=== PATIENT | female | born 1965 | race Caucasian/White ===

== ENCOUNTER 2019-12-31 12:27 | Inpatient (IN) | payer BC ==
[2019-12-31] MEDS ORDERED: NS 0.9% 1000 ML** 1,000 ML IV ONE (12:35)
[2019-12-31] MEDS ORDERED: Heparin DRIP 25,000 UNITS(*) 25,000 UNITS/500 ML BAG ONE (12:38)
[2019-12-31] MEDS ORDERED: Ticagrelor* 90 MG TAB PO ONE ×2 (12:39→12:40)
[2019-12-31] MEDS ORDERED: Nitroglycerin TAB 0.4 MG* 0.4 MG TAB ONE (12:42)
[2019-12-31] MEDS ORDERED: Aspirin 81 mg CHEW TAB* 81 MG TAB.CHEW ONE (12:43)
[2019-12-31] MEDS ORDERED: Heparin for STEMI(*) 5,000 UNITS/ML 1 ML VIAL IV ONE (12:43)
--- NOTE | 2019-12-31 12:44 | ED ---
HPI Cardiac - HPI Summary HPI Summary: Patient is a 54 y/o F w/ Hx of two MIs and 2-3 cardiac stents who presents to [facility] with complaints of chest pain, bilateral arm pain, nausea and diaphoresis. Patient reports that she had bilateral arm pain onset around 0730 this morning, 12/31/19. Pain resolved, and between 1000 and 1030, she reports onset of nausea and diaphoresis. Patient also reports some chest pain in the room, characterizing it as mild. Patient denies fever, chills, erythema of eyes , sore throat, shortness of breath, cough, abdominal pain, vomiting, dysuria, hematuria, myalgia, edema, rash, or dizziness. She states that first AZ was in 1999 and second in 2011. Patient reports no cardiac stress test since 2011. She claims no Hx of HLD, diabetes. Patient took two regular ASA at around 1000 today. Landscape Crew Leader is Dr. Rodríguez in [facility]. Home medications and allergies are reviewed. - History of Current Complaint Stated Complaint: CHEST PAIN PER PT Hx Obtained From: Patient Onset/Duration: Still Present Timing: Constant Current Severity: Mild Pain Scale Used: 0-10 Numeric Associated Signs and Symptoms: Positive: Chest Pain, Diaphoresis, Nausea, Other : - bilateral arm pain PMH/Surg Hx/FS Hx/Imm Hx Endocrine/Hematology History: Denies: Hx Diabetes Cardiovascular History: Reports: Hx Myocardial Infarction Denies: Hx Hypercholesterolemia - Surgical History Surgery Procedure, Year, and Place: stents - Family History Known Family History: Negative: Seizure Disorder - Social History Substance Use Type: Reports: None Smoking Status (MU): Unknown if Ever Smoked Review of Systems Positive: Skin Diaphoresis. Negative: Fever, Chills Negative: Erythema Negative: Sore Throat Positive: Chest Pain - w/ bilateral arm pain Negative: Shortness Of Breath, Cough Positive: Nausea. Negative: Abdominal Pain, Vomiting Negative: dysuria, hematuria Negative: Myalgia, Edema Negative: Rash Neurological: Negative - Dizziness All Other Systems Reviewed And Are Negative: Yes Physical Exam - Summary Physical Exam Summary: Constitutional: Well-developed, Well-nourished, Alert. (-) Distressed Skin: Warm, Dry HENT: Normocephalic; Atraumatic Eyes: Conjunctiva normal Neck: Musculoskeletal ROM normal neck. (-) JVD, (-) Stridor, (-) Tracheal deviation Cardio: Rhythm regular, rate normal, Heart sounds normal; Intact distal pulses; The pedal pulses are 2+ and symmetric. Radial pulses are 2+ and symmetric. (-) Murmur Pulmonary/Chest wall: Effort normal. (-) Respiratory distress, (-) Wheezes, (-) Rales Abd: Soft, (-) tenderness, (-) Distension, (-) Guarding, (-) Rebound Musculoskeletal: (-) Edema Lymph: (-) Cervical adenopathy Neuro: Alert, Oriented x3 Psych: Mood and affect Normal Triage Information Reviewed: Yes Vital Signs Reviewed: Yes Procedures - Sedation Patient Received Moderate/Deep Sedation with Procedure: No Diagnostics - Laboratory Result Diagrams: 12/31/19 12:35 12/31/19 12:35 Lab Statement: Any lab studies that have been ordered have been reviewed, and results considered in the medical decision making process. - EKG 1226 Summary of EKG Findings: Inferior wall STEMI. ED physician has reviewed and interpreted this EKG. Disposition - Course Course Of Treatment: 54 y/o F with hx of AZ x2 and 2-3 cardiac stents presents with chest pain, bilateral arm pain, nausea and diaphoresis starting today 2019 AM. First AZ in 1999 and second AZ in 2011. No cardiac stress test since 2011. No hx HLD or diabetes. Took ASA x2 around 1000 today. Medications and allergies are reviewed. Blood work obtained. Patient started on heparin, normal saline fluids, and given ticagrelor. Physical exam unremarkable. EKG shows an inferior wall STEMI. Dr. Loco in room with patient. Patient accepted to Dr. Loco interventional cardiology. Patient to blood bank laboratory technologist. - Diagnoses Provider Diagnoses: ST elevation myocardial infarction (STEMI) of inferior wall During the Visit The Following Alert/Code Occurred: STEMI - 1231 - Physician Notifications Discussed Care Of Patient With: Roger Loco Time Discussed With Above Provider: 12:31 Instructed by Provider To: Admit As Inpatient Discharge ED - Sign-Out/Discharge Documenting (check all that apply): Patient Departure - Discharge Plan Condition: Stable Disposition: ADMITTED TO [facility] - Attestation Statements Document Initiated by Scribe: Yes Documenting Scribe: Michelle Cannon Provider For Whom Scribe is Documenting (Include Credential): Jamie Palacios MD Scribe Attestation: I, Alonso Kolenda, Michelle Gutierrez, scribed for Jamie Palacios MD on 12/31/19 at 1327. Status of Scribe Document: Ready
[2019-12-31 12:49] LABS: ABS Basophils 0.1 10^3/ul (0-0.2); ABS Eosinophils 0.3 10^3/ul (0-0.6); ABS Lymphocytes 2.7 10^3/ul (1.0-4.8); ABS Monocytes 0.5 10^3/ul (0-0.8); ABS Neutrophils 4.6 10^3/ul (1.5-7.7); Eosinophil % 3.8 %; Hematocrit 45 % (35-47); Hemoglobin 15.5 g/dL (12.0-16.0); Lymphocyte % 33.1 %; Mean Corpuscular HGB Conc 34 g/dL (31-36); Mean Corpuscular Hemoglobin 35 pg (27-31); Mean Corpuscular Volume 103 fL (80-97); Mean Platelet Volume 8.5 fL (7.4-10.4); Nucleated Red Blood Cells % 0.1; Platelet Count 272 10^3/uL (150-450); Red Blood Count 4.41 10^6 /uL (3.70-4.87); Red Cell Distribution Width 13 % (10-15); White Blood Count 8.2 10^3/uL (3.5-10.8)
[2019-12-31 13:00] LABS: INR 0.97 (0.82-1.09)
[2019-12-31] MEDS ORDERED: Heparin VIAL(*) 5000 UNITS/ML VIAL (FIVE THOUSAND) IV ONE (13:00)
[2019-12-31] MEDS ORDERED: Heparin VIAL(*) 5000 UNITS/ML VIAL (FIVE THOUSAND) IV SCH ×2 (13:00)
[2019-12-31 13:07] LABS: ALT 10 U/L (7-52); AST 16 U/L (13-39); Albumin/Globulin Ratio 1.5 (1-3); Alkaline Phosphatase 101 U/L (34-104); Anion Gap 9 mmol/L (2-11); BUN/Creatinine Ratio 12.9 (8-20); Blood Urea Nitrogen 9 mg/dL (6-24); CO2 Carbon Dioxide 23 mmol/L (22-32); Calcium 8.8 mg/dL (8.6-10.3); Chloride 104 mmol/L (101-111); Creatine Kinase 67 U/L (10-223); EGFR African American 105.1 (>60); EGFR Non-African American 86.9 (>60); Globulin 2.7 g/dL (2-4); Glucose 162 mg/dL (70-100); LDL Cholesterol Direct 158 mg/dL; Potassium 3.7 mmol/L (3.5-5.0); Sodium 136 mmol/L (135-145); Total Protein 6.7 g/dL (6.4-8.9)
[2019-12-31 13:11] LABS: CKMB ng/mL 7.8 ng/mL (0.6-6.3)
[2019-12-31 13:27] LABS: Troponin I 0.26 ng/mL (<0.03)
[2019-12-31] MEDS ORDERED: Zolpidem TAB* 5 MG PO PRN (14:02)
[2019-12-31] MEDS ORDERED: Ondansetron INJ* 2 MG/ML VIAL IV PRN (14:02)
[2019-12-31] MEDS ORDERED: Acetaminophen TAB* 325 MG PO PRN (14:02)
[2019-12-31] MEDS ORDERED: Nitroglycerin TAB 0.4 MG* 0.4 MG TAB SL PRN (14:02)
[2019-12-31] MEDS ORDERED: Docusate CAP* 100 MG PO PRN (14:02)
[2019-12-31] MEDS ORDERED: Atorvastatin* 80 MG TAB PO ONE (14:10)
[2019-12-31] MEDS ORDERED: NS 0.9% 1000 ML** 1,000 ML IV SCH (14:15)
[2019-12-31] MEDS ORDERED: Atorvastatin* 80 MG TAB ONE (14:27)
[2019-12-31] MEDS: Metoprolol Tartrate TAB* 25 MG PO SCH ×2 (14:29→22:24)
--- NOTE | 2019-12-31 18:08 | HP ---
CC: Dr. Handy Rodríguez, Primary Bakery Associate, [place], [place] * ADMISSION HISTORY AND PHYSICAL: DATE OF ADMISSION: 12/31/19 CHIEF COMPLAINT: The patient presents with bilateral arm discomfort and nauseousness with EKG demonstrating acute ST segment elevation, inferior wall myocardial infarction. HISTORY OF PRESENT ILLNESS: The patient is a 54-year-old female with a significant prior history of coronary artery disease with an inferior wall myocardial infarction in 1999 and treated with thrombolytics, transferred to [facility] and undergoing a bare metal stent placement in her proximal LAD with a Niroyal stent. Her next cardiac intervention was on 05/21/12 when she suffered an inferior wall myocardial infarction and was transferred for urgent cardiac catheterization and was found to have a total occlusion of the right coronary artery after a right ventricular branch. The right ventricular branch had a 90% stenosis in itself. At that time, she had disease in the LAD and the circumflex. She underwent stent placement to the right coronary artery and eventually had repeat intervention on 06/13/12 to the LAD and to the right coronary artery with drug-eluting stents in them as well. Of note, the patient followed with Dr. Rodríguez until 2013 when she stopped seeing him because of the distance of where she lives. She then decided to stop all of her medications except for her aspirin once a day 2 years ago. She continues to smoke as well. Today, she developed the onset of bilateral arm discomfort in the lpn rn hours around 7 a.m. It dissipated quickly. She then had return of feeling nauseous and queasy and just very ill at around 10:30 and started developing bilateral arm discomfort while she was at work. A co-worker brought her to the emergency room and the first EKG demonstrated acute ST segment elevation in the inferior leads with reciprocal changes. A STEMI alert was called. In the emergency room, she was given 4800 units of heparin intravenously and she had already taken aspirin at home today and she has been on aspirin chronically. She was given 180 mg of Brilinta to chew. The risks and benefits were explained, she understood them and wished to proceed to the lab. PAST MEDICAL HISTORY: The patient denied that she had any history of diabetes, hypertension, or hyperlipidemia, but interestingly in records from [facility], they stated that the patient has a significant history of hyperlipidemia. She also has a known history of CAD as outlined above. FAMILY HISTORY: Significant for the presence of coronary artery disease. SOCIAL HISTORY: She is a smoker and continues to smoke. REVIEW OF SYSTEMS: Pertinent to proceeding emergently to the cardiovascular laboratory - she denied any history of hematochezia, hematemesis, or hematuria. She denied any history of stroke, TIA, or dye allergy. She denied any history of significant kidney disease. PHYSICAL EXAMINATION VITAL SIGNS: When I saw her in the emergency room revealed blood pressure 170/ 85 with a pulse of 75 to 80. She was still having ongoing discomfort. NECK: Supple. No increased JVP. LUNGS: Clear to A and P with no active rales, rhonchi, or wheezes. HEART: Revealed no visible heaves. No palpable heaves or thrills. Normal S1, S2 with no significant systolic or diastolic murmur. ABDOMEN: Soft, nontender. EXTREMITIES: Without clubbing, cyanosis, or significant pitting edema. Peripheral pulses were intact. Femoral pulses were noted without bruits. MUSCULOSKELETAL: The patient moves all extremities appropriately. NEURO: The patient is alert, oriented with normal mentation. PSYCHOLOGICAL: The patient with appropriate affect for presentation. DIAGNOSTIC STUDIES/LAB DATA: EKG showed sinus rhythm, heart rate is 66. There is ST elevation seen in II, III, aVF with reciprocal changes in I, aVL, and ST downsloping in V2 through V5. Laboratory results were pending at the time of her emergency room evaluation. OVERALL ASSESSMENT: The patient presents in the throws of an acute ST-segment elevation inferior wall myocardial infarction with a history of multivessel stenting in the past. She has been appropriately treated with heparin, Brilinta and has already received aspirin therapy and is on it chronically. The risks and benefits of cardiac catheterization were explained to her and she understood them and wished to proceed. Further management will be pending the results of the cardiac catheterization, but anticipating probable percutaneous coronary intervention. Aggressive risk factor management will be pursued including aggressive measures to convince her to stop smoking, high-dose statin therapy in addition to dual antiplatelet therapy. We will screen her with a hemoglobin A1c to make sure she does not have diabetes. [id number]/[facility] #: [id number] [facility] HOSPITALAlessio
[2019-12-31 18:15] LABS: Troponin I 27.44 ng/mL (<0.03)
--- NOTE | 2019-12-31 19:16 | CATH ---
CC: Dr. Handy Rodríguez, [place], [place] * CARDIAC CATHETERIZATION AND INTERVENTIONAL REPORT: DATE OF PROCEDURE: 12/31/19 - ROOM #ICU-01 PATIENT'S PRIMARY AUTOMOBILE PARTS ASSEMBLER: Dr. Handy Rodríguez. [facility] AUTOMOBILE PARTS ASSEMBLER: Dr. Roger Loco INDICATION FOR PROCEDURE: The patient presents with acute ST-segment elevation inferior wall myocardial infarction, with a history of prior stenting in the mid right coronary artery in 2011, in addition to stenting of the LAD in 1999 and in 2011, and stenting of the circumflex in 2011. PROCEDURE: Coronary arteriography, left heart catheterization, left ventriculography, balloon angioplasty and placement of a 2.75 x 38 mm long Synergy drug-eluting stent post dilated to 3.1 to 3.2 mm in the mid to distal right coronary artery. CONSENT: The patient was interviewed and examined in the emergency room where the risks and benefits were explained. She understood them and wished to proceed. APPROACH UTILIZED: The patient had a history of prior cardiac catheterizations via the right radial artery. The right radial artery was assessed by ultrasound prior to beginning the procedure and found to be acceptable for an approach, and as such, this was the approach utilized. EQUIPMENT UTILIZED: 1. Right radial artery sheath was a 6-Japanese Glidesheath Slender. 2. Diagnostic coronary catheter was a 5-Japanese TIG4 catheter. 3. Diagnostic guidewire was a 260 length Mcmahon curved guidewire. 4. Guide catheter utilized was a 6-Japanese right coronary artery bypass graft catheter. 5. The interventional wire utilized was a 190 cm length All Star guidewire. 6. Initial balloon inflation catheter was 2.5 x 15 mm long Emerge balloon. 7. Stent utilized was a 2.75 x 38 mm long Synergy drug-eluting stent. 8. Post stent deployment balloon catheter was a 3.0 x 20 mm long NC Emerge balloon. 9. Left heart catheterization catheter was a 5-Japanese PIG short radial catheter. 10. Closure device utilized was a regular sized Vasc Band with a second Vasc Band placed more distally due to mild swelling in the area. LABORATORY RESULTS: Before the start of the case - not available. Late in the case, laboratory results became available with hemoglobin and hematocrit of 15.5 and 45 with a platelet count of 272,000. BUN of 9, a creatinine of 0.7, sodium 138, potassium 3.7, chloride 104, bicarb 23. Troponin 0.26. MEDICATIONS GIVEN: In the emergency room, 4800 units of heparin intravenously, 180 mg of Brilinta chewed orally. Of note, the patient had already taken aspirin at home today. Medications given during the procedure included: 1. Radial artery cocktail including 300 mcg of nitroglycerin and 3 mg of verapamil intraarterial. 2. Additional nitroglycerin was given as needed. 3. 1% lidocaine was given for local administration. 4. Another 2000 units of heparin was given for a borderline low ACT for intervention. 5. 1 mg of Versed was given as well. DESCRIPTION OF PROCEDURE: The patient was brought to the cardiovascular laboratory where a formal time-out was performed. She was prepped and draped in a sterile fashion and under ultrasound guidance, the right radial artery was cannulated and the sheath was placed. Coronary arteriography was performed. Following this, the decision was made to intervene into the totally occluded right coronary artery. Guide views were obtained and additional heparin bolus was administered. The All Star wire was advanced across the total occlusion into the distal portion of the vessel. Balloon angioplasty was performed followed by stent deployment. High pressure post stent deployment balloon inflations were made utilizing the 3.0 x 20 mm long NC Emerge balloon. Following this, the artery was assessed both with the wire in place and wire removed. Additional shots of the left coronary artery were performed. Left heart catheterization was performed followed by left ventriculography utilizing a total of 24 cc of Omnipaque dye at a rate of 12 cc per second. At the end of the case, the catheter and sheath were removed and hemostasis was obtained with a Vasc Band. The total contrast used was 165 cc of Omnipaque dye. The radiation exposure included 12.1 minutes of fluoro time. The air kerma radiation was 2002 milligray. The DAP radiation was 11,306 microgray per meter squared. RESULTS: HEMODYNAMIC DATA: Left heart catheterization revealed central aortic pressure of 144/78 with a mean of 106, left ventricular pressure 148 over left ventricular end- diastolic pressure of 13. LEFT VENTRICULOGRAPHY: Performed in the STEWART projection revealed moderate hypokinesis of the proximal to mid inferior wall with preservation of the distal inferior wall and the anterior apical region. The overall ejection fraction was mildly reduced at 40% to 45%. CORONARY ARTERIOGRAPHY: A. Left coronary artery: 1. Left main - the distal left main had an eccentric lesion that was best appreciated in the STEWART projection. In its worst view, it had calcium surrounding it and the lesion appeared to be as much as 70%. 2. Left anterior descending artery. The proximal portion of the left anterior descending artery had [id number] narrowing of 45% to 50% in the proximal to mid area, which was stented with 2 stents placed. There was mild-to -moderate in-stent restenosis. Past this point, the mid portion had a narrowing that appeared to be as much as 65% to 70%. The distal portion of the vessel extended to the apical region and mildly onto the distal inferior wall. The LAD supplied a high first diagonal branch followed by a mid diagonal branch which bifurcated. No significant lesions were seen in these vessels, although they were somewhat small in caliber approximately 2 mm. 3. Circumflex artery - a nondominant vessel supplying a thin first obtuse marginal branch short in nature followed by a second thin obtuse marginal branch. The third obtuse marginal was a bifurcating vessel, which in its proximal to mid portion, the point of bifurcation had significant disease involving both the continuation of the superior and inferior branch. The superior branch appeared to have approximately a 70% to 75% narrowing noted. The inferior branch appeared to have narrowing of 50%. It was a smaller caliber branch. * Of note very faint left to right are seen to distal right coronary artery on late injections. B. Right coronary artery - a dominant vessel which on initial injection was found to be totally occluded with a long 55% to 60% narrowing noted proximally. A stent was noted in the proximal to mid segment with no significant in-stent restenosis, just past this point was narrowing as much as 55% to 60% before the eventual total occlusion. On reconstitution of the vessel, it supplied a PDA and 3 posterior left ventricular branches and it had [id number]-[id number] disease in its mid to distal segments. Of note, there was a second acute marginal branch, which was diffusely diseased and long in nature in its proximal segment with narrowing as much as 85%. The caliber of this vessel appeared to be small, less than 2 mm. INTERVENTION INTO TOTALLY OCCLUDED MID RIGHT CORONARY ARTERY: Successful balloon angioplasty and reconstitution of totally occluded mid right coronary utilizing a 2.75 x 38 mm long Synergy drug-eluting stent post dilated to 3.1 to 3.2 mm with REGI 3 flow and no residual stenosis in the mid to distal right coronary artery. OVERALL ASSESSMENT: Significant multivessel disease as described with acute intervention into totally occluded right coronary artery in the setting of a ST- elevation inferior wall myocardial infarction. The patient still has residual proximal right coronary artery disease, but with the presence of the suggestion of a significant distal left main lesion, ultimately I believe bypass surgery may be in the patient's best interest in light of the multivessel disease as described above. Interestingly, she does not describe having significant symptoms of the left main lesion over the past several weeks going up and down stairs, carrying laundry with provoking any significant shortness of breath, chest, jaw or arm discomfort. Most importantly to her care is the fact that she herself admits she had stopped all of her medications except for the aspirin 2 years ago. She has not followed up with her primary hanging flags decorator, Dr. Rodríguez, since 2013. We will immediately have her on high-dose statin therapy, beta-marisol therapy, dual antiplatelet therapy. We will strongly encourage her to completely cease smoking as according to her she smokes approximately half- a-pack a day. We will consider adding an MIKAYLA inhibitor for the blood pressure control as needed. We will also get a hemoglobin A1c in light of her nonfasting glucose being elevated. Consideration for hospitalist consultation if it is significantly elevated will be made. Of note, I personally called Dr. Rodríguez prior to doing the case and he graciously provided me with information regarding her prior interventions. I also discussed the results with him after the case. [id number]/[facility] #: [id number] DANIKA
[2019-12-31] MEDS: Ticagrelor* 90 MG TAB PO SCH (20:43)
[2020-01-01 01:05] LABS: CKMB ng/mL 94.4 ng/mL (0.6-6.3)
[2020-01-01 01:08] LABS: Troponin I 24.96 ng/mL (<0.03)
[2020-01-01 01:29] LABS: Creatine Kinase 573 U/L (10-223)
[2020-01-01] MEDS: Metoprolol Tartrate TAB* 25 MG PO SCH (06:49)
[2020-01-01 06:52] LABS: Albumin 3.4 g/dL (3.2-5.2); Anion Gap 5 mmol/L (2-11); CO2 Carbon Dioxide 23 mmol/L (22-32); Calcium 8.3 mg/dL (8.6-10.3); Chloride 110 mmol/L (101-111); Sodium 138 mmol/L (135-145)
[2020-01-01 06:58] LABS: ALT 15 U/L (7-52); AST 55 U/L (13-39); Albumin/Globulin Ratio 1.5 (1-3); Alkaline Phosphatase 83 U/L (34-104); BUN/Creatinine Ratio 8.3 (8-20); Blood Urea Nitrogen 5 mg/dL (6-24); CKMB ng/mL 62.7 ng/mL (0.6-6.3); Cholesterol 179 mg/dL; Creatine Kinase 422 U/L (10-223); EGFR African American 125.6 (>60); EGFR Non-African American 103.8 (>60); Globulin 2.3 g/dL (2-4); Glucose 100 mg/dL (70-100); HDL Cholesterol 47.8 mg/dL; LDL Cholesterol 96 mg/dL; Total Protein 5.7 g/dL (6.4-8.9); Triglycerides 176 mg/dL
[2020-01-01] MEDS ORDERED: Perflutren Lipid Microsphere* 3 ML VIAL ONE (08:20)
--- NOTE | 2020-01-01 08:38 | PN ---
<Rebecca Meadows - Last Filed: 01/01/20 08:31> Subjective Date of Service: 01/01/20 - Inferior STEMI s/p PCI Interval History: Patient presented with acute inferior STEMI 12/31/2019. She underwent successful PTCA/THUAN to mid-distal RCA. She has not had recurrent bilateral upper extremity pain of SOB( angina equivalent) Since. Denies ever having chest pain. Current getting TTE done but offers no complaints. Adds that she has been out of bed and ambulating in her room with no c/o dizziness, lightheadedness, chest pain or SOB. She is inquiring about pin point rash noted on dorsal aspect of right hand. Adds that it is not itchy or painful. Denies right radial access site pain. Medications Active Medications: Acetaminophen (Tylenol Tab*) 650 mg PO Q4H PRN PRN Reason: PAIN - MILD Aspirin (Aspirin 81 Mg Chew Tab*) 81 mg PO DAILY [facility] Atorvastatin Calcium (Lipitor*) 80 mg PO 1700 [facility] Docusate Sodium (Colace Cap*) 100 mg PO DAILY PRN PRN Reason: CONSTIPATION Metoprolol Tartrate (Lopressor Tab*) 25 mg PO BID [facility] Nitroglycerin (Nitroglycerin Tab 0.4 Mg*) 0.4 mg SL Q5M PRN PRN Reason: ANGINA Ondansetron HCl (Zofran Inj*) 4 mg IV Q4H PRN PRN Reason: NAUSEA Ticagrelor (Brilinta*) 90 mg PO BID [facility] Last Admin: 12/31/19 20:43 Dose: 90 mg Zolpidem Tartrate (Ambien Tab*) 5 mg PO BEDTIME PRN PRN Reason: INSOMNIA Objective Vital Signs: Temp Pulse Resp BP Pulse Ox 99.3 F 64 21 126/77 97 01/01/20 07:30 01/01/20 07:00 01/01/20 07:00 01/01/20 07:00 01/01/20 07:00 Oxygen Devices in Use Now: None Appearance: lying upright in bed, offers no complaints. Appears in NAD. Well nourished, pleasant Eyes: No Scleral Icterus, PERRLA Ears/Nose/Mouth/Throat: NL Teeth, Lips, Gums, Clear Oropharnyx, Mucous Membranes Moist Neck: NL Appearance and Movements; NL JVP, Trachea Midline Respiratory: Symmetrical Chest Expansion and Respiratory Effort, Clear to Auscultation Cardiovascular: NL Sounds; No Murmurs; No JVD, No Edema, - Abdominal: NL Sounds; No Tenderness; No Distention Extremities: No Edema, - - right radial access site 3+ radial pulse. non tender to palpation, no thrill, no hematoma. Skin: - - + pin point maculopapular rash on dorsal aspect of right hand. not inflamed. Neurological: Alert and Oriented x 3 Lines/Tubes/Other Access: Clean, Dry and Intact Peripheral IV Laboratory Results: 12/31/19 12:35 01/01/20 06:07 INR (Anticoag Therapy) 0.97 (0.82-1.09) 12/31/19 12:35 Total Bilirubin 0.50 mg/dL (0.2-1.0) 01/01/20 06:07 AST 55 U/L (13-39) H 01/01/20 06:07 ALT 15 U/L (7-52) 01/01/20 06:07 Alkaline Phosphatase 83 U/L (34-104) 01/01/20 06:07 CK-MB (CK-2) 62.7 ng/mL (0.6-6.3) H 01/01/20 06:07 B-Natriuretic Peptide 78 pg/mL (<=100) 12/31/19 12:35 Total Protein 5.7 g/dL (6.4-8.9) L 01/01/20 06:07 Albumin 3.4 g/dL (3.2-5.2) 01/01/20 06:07 Globulin 2.3 g/dL (2-4) 01/01/20 06:07 Albumin/Globulin Ratio 1.5 (1-3) 01/01/20 06:07 Triglycerides 176 mg/dL 01/01/20 06:07 Cholesterol 179 mg/dL 01/01/20 06:07 LDL Cholesterol 96 mg/dL 01/01/20 06:07 HDL Cholesterol 47.8 mg/dL 01/01/20 06:07 12/31/19 12/31/19 01/01/20 12:35 17:46 00:35 Troponin I 0.26 H* 27.44 H* 24.96 H* 01/01/20 06:07 Troponin I 15.07 H* Laboratory Results - last 24 hr 12/31/19 12/31/19 12/31/19 12:35 12:35 12:35 WBC 8.2 RBC 4.41 Hgb 15.5 Hct 45 MCV 103 H MCH 35 H MCHC 34 RDW 13 Plt Count 272 MPV 8.5 Neut % (Auto) 55.6 Lymph % (Auto) 33.1 Surry % (Auto) 6.7 Eos % (Auto) 3.8 Baso % (Auto) 0.8 Absolute Neuts (auto) 4.6 Absolute Lymphs (auto) 2.7 Absolute Monos (auto) 0.5 Absolute Eos (auto) 0.3 Absolute Basos (auto) 0.1 Absolute Nucleated RBC 0.0 Nucleated RBC % 0.1 INR (Anticoag Therapy) 0.97 POC Activ Clotting Time Sodium 136 Potassium 3.7 Chloride 104 Carbon Dioxide 23 Anion Gap 9 BUN 9 Creatinine 0.70 Est GFR ( Amer) 105.1 Est GFR (Non-Af Amer) 86.9 BUN/Creatinine Ratio 12.9 Glucose 162 H Calcium 8.8 Total Bilirubin 0.30 AST 16 ALT 10 Alkaline Phosphatase 101 Total Creatine Kinase 67 CK-MB (CK-2) 7.8 H Troponin I 0.26 H* B-Natriuretic Peptide Total Protein 6.7 Albumin 4.0 Globulin 2.7 Albumin/Globulin Ratio 1.5 Triglycerides Cholesterol LDL Cholesterol LDL Cholesterol Direct 158 HDL Cholesterol 12/31/19 12/31/19 12/31/19 12:35 13:06 13:19 WBC RBC Hgb Hct MCV MCH MCHC RDW Plt Count MPV Neut % (Auto) Lymph % (Auto) Surry % (Auto) Eos % (Auto) Baso % (Auto) Absolute Neuts (auto) Absolute Lymphs (auto) Absolute Monos (auto) Absolute Eos (auto) Absolute Basos (auto) Absolute Nucleated RBC Nucleated RBC % INR (Anticoag Therapy) POC Activ Clotting Time 207 409 Sodium Potassium Chloride Carbon Dioxide Anion Gap BUN Creatinine Est GFR ( Amer) Est GFR (Non-Af Amer) BUN/Creatinine Ratio Glucose Calcium Total Bilirubin AST ALT Alkaline Phosphatase Total Creatine Kinase CK-MB (CK-2) Troponin I B-Natriuretic Peptide 78 Total Protein Albumin Globulin Albumin/Globulin Ratio Triglycerides Cholesterol LDL Cholesterol LDL Cholesterol Direct HDL Cholesterol 12/31/19 01/01/20 01/01/20 17:46 00:35 06:07 WBC RBC Hgb Hct MCV MCH MCHC RDW Plt Count MPV Neut % (Auto) Lymph % (Auto) Surry % (Auto) Eos % (Auto) Baso % (Auto) Absolute Neuts (auto) Absolute Lymphs (auto) Absolute Monos (auto) Absolute Eos (auto) Absolute Basos (auto) Absolute Nucleated RBC Nucleated RBC % INR (Anticoag Therapy) POC Activ Clotting Time Sodium 138 Potassium 4.0 Chloride 110 Carbon Dioxide 23 Anion Gap 5 BUN 5 L Creatinine 0.60 Est GFR ( Amer) 125.6 Est GFR (Non-Af Amer) 103.8 BUN/Creatinine Ratio 8.3 Glucose 100 Calcium 8.3 L Total Bilirubin 0.50 AST 55 H ALT 15 Alkaline Phosphatase 83 Total Creatine Kinase 573 H 422 H CK-MB (CK-2) 94.4 H 62.7 H Troponin I 27.44 H* 24.96 H* 15.07 H* B-Natriuretic Peptide Total Protein 5.7 L Albumin 3.4 Globulin 2.3 Albumin/Globulin Ratio 1.5 Triglycerides 176 Cholesterol 179 LDL Cholesterol 96 LDL Cholesterol Direct HDL Cholesterol 47.8 Diagnostic Imaging: Cardiac Catheterization Report Patient: VANDANA STAFFORD /Age: 9 1965 54 Medical Record#: [id number] Admission Date: 12/31/19 Provider: Roger Loco MD CC: Dr. Handy [place], [place] * CARDIAC CATHETERIZATION AND INTERVENTIONAL REPORT: DATE OF PROCEDURE: 12/31/19 - ROOM #ICU-01 PATIENT'S PRIMARY PATTERN AND CHAIN MAKER: Dr. Handy Rodríguez. [facility] PATTERN AND CHAIN MAKER: Dr. Roger Loco INDICATION FOR PROCEDURE: The patient presents with acute ST-segment elevation inferior wall myocardial infarction, with a history of prior stenting in the mid right coronary artery in 2011, in addition to stenting of the LAD in 1999 and in 2011, and stenting of the circumflex in 2011. PROCEDURE: Coronary arteriography, left heart catheterization, left ventriculography, balloon angioplasty and placement of a 2.75 x 38 mm long Synergy drug-eluting stent post dilated to 3.1 to 3.2 mm in the mid to distal right coronary artery. CONSENT: The patient was interviewed and examined in the emergency room where the risks and benefits were explained. She understood them and wished to proceed. APPROACH UTILIZED: The patient had a history of prior cardiac catheterizations via the right radial artery. The right radial artery was assessed by ultrasound prior to beginning the procedure and found to be acceptable for an approach, and as such, this was the approach utilized. EQUIPMENT UTILIZED: 1. Right radial artery sheath was a 6-English Glidesheath Slender. 2. Diagnostic coronary catheter was a 5-English TIG4 catheter. 3. Diagnostic guidewire was a 260 length Mcmahon curved guidewire. 4. Guide catheter utilized was a 6-English right coronary artery bypass graft catheter. 5. The interventional wire utilized was a 190 cm length All Star guidewire. 6. Initial balloon inflation catheter was 2.5 x 15 mm long Emerge balloon. 7. Stent utilized was a 2.75 x 38 mm long Synergy drug-eluting stent. 8. Post stent deployment balloon catheter was a 3.0 x 20 mm long NC Emerge balloon. 9. Left heart catheterization catheter was a 5-English PIG short radial catheter. 10. Closure device utilized was a regular sized Vasc Band with a second Vasc Band placed more distally due to mild swelling in the area. This report is only to be considered final once signed by the Provider(s) as displayed in the "<Electronically Signed by >" field (s). Absence of a signature indicates the report is in a draft status and still needs to be finalized. In the event this document was created by someone other than the signing Provider, the individual initiating the document will be listed in the "Entered by:" or "Dictated by:" mendez. 1 of 3 EKG Data: ECG 12/31/2019; Sinus rhythm rate [address] elevation in lead 2,3 and aVF with reciprocal changes in anterior leads. ECG 01/01/2020; Pending Telemetry; 12/31-01/01/2020 reviewed. Sinus rhythm rate 55-65 with occasional PVCs no VT. Assessment/Plan #1 Acute Inferior STEMI 12/31/2019 s/p successful PTCA/THUAN to mid-distal RCA. Patient has known 70% distal LM lesion, 85% proximal acute marginal branch lesion, 65-70% mid LAD lesion. She is now on ASA 81/day, Brilinta 90mg PO BID, Lipitor 80 QHS and Lopressor therapy. HR on telemetry has been 55-65 however, she has not ambulated the halls. Will convert Lopressor to Toprol 50/day and add Lisinopril 2.5mg/day. She will need close follow up assessment of residual disease specifically distal LM lesion, she is requesting to establish care here in [place]. She is aware that CABG or LM intervention would need to be done at cardiac tertiary center and she states she would want this done at [facility]. She will need uninterrupted DAPT x12 months given presentation was STEMI. #2 HLD; LDL 170; now on high intensity statin therapy. Goal LDL <70. Will need outpatient FLP/LFT in 6-8 weeks time. #3 Tobacco abuse; reviewed importance of smoking cessation with the patient who states she is interested in quitting. She denies needing nicotine patch. #4 h/o HTN; SBP 130's. Will continue bblocker therapy but convert Lopressor to Toprol and add low dose ACEI. #5 Disposition pending course, patient full code. I asked her to ambulate halls. If she continues to do well will transfer to [address] [place] [address] later today. will d/ w Dr. Loco attending physician. Attending: Roger Loco <Roger Loco - Last Filed: 01/01/20 10:33> Medications Active Medications: Acetaminophen (Tylenol Tab*) 650 mg PO Q4H PRN PRN Reason: PAIN - MILD Aspirin (Aspirin 81 Mg Chew Tab*) 81 mg PO DAILY [facility] Last Admin: 01/01/20 09:15 Dose: 81 mg Atorvastatin Calcium (Lipitor*) 80 mg PO 1700 [facility] Docusate Sodium (Colace Cap*) 100 mg PO DAILY PRN PRN Reason: CONSTIPATION Lisinopril (Prinivil Tab*) 2.5 mg PO DAILY [facility] Last Admin: 01/01/20 09:15 Dose: 2.5 mg Metoprolol Succinate (Toprol Xl Tab*) 50 mg PO DAILY [facility] Metoprolol Tartrate (Lopressor Tab*) 25 mg PO ONCE ONE Stop: 01/01/20 18:01 Nitroglycerin (Nitroglycerin Tab 0.4 Mg*) 0.4 mg SL Q5M PRN PRN Reason: ANGINA Ondansetron HCl (Zofran Inj*) 4 mg IV Q4H PRN PRN Reason: NAUSEA Ticagrelor (Brilinta*) 90 mg PO BID [facility] Last Admin: 01/01/20 09:16 Dose: 90 mg Zolpidem Tartrate (Ambien Tab*) 5 mg PO BEDTIME PRN PRN Reason: INSOMNIA Objective Vital Signs: Temp Pulse Resp BP Pulse Ox 99.3 F 64 21 126/77 97 01/01/20 07:30 01/01/20 07:00 01/01/20 07:00 01/01/20 07:00 01/01/20 07:00 Laboratory Results: 12/31/19 12:35 01/01/20 06:07 INR (Anticoag Therapy) 0.97 (0.82-1.09) 12/31/19 12:35 Total Bilirubin 0.50 mg/dL (0.2-1.0) 01/01/20 06:07 AST 55 U/L (13-39) H 01/01/20 06:07 ALT 15 U/L (7-52) 01/01/20 06:07 Alkaline Phosphatase 83 U/L (34-104) 01/01/20 06:07 CK-MB (CK-2) 62.7 ng/mL (0.6-6.3) H 01/01/20 06:07 B-Natriuretic Peptide 78 pg/mL (<=100) 12/31/19 12:35 Total Protein 5.7 g/dL (6.4-8.9) L 01/01/20 06:07 Albumin 3.4 g/dL (3.2-5.2) 01/01/20 06:07 Globulin 2.3 g/dL (2-4) 01/01/20 06:07 Albumin/Globulin Ratio 1.5 (1-3) 01/01/20 06:07 Triglycerides 176 mg/dL 01/01/20 06:07 Cholesterol 179 mg/dL 01/01/20 06:07 LDL Cholesterol 96 mg/dL 01/01/20 06:07 HDL Cholesterol 47.8 mg/dL 01/01/20 06:07 12/31/19 12/31/19 01/01/20 12:35 17:46 00:35 Troponin I 0.26 H* 27.44 H* 24.96 H* 01/01/20 06:07 Troponin I 15.07 H* Assessment/Plan Points of Discussion: Patient seen and examined . Agree with above. Ultimately will need coronary artery bypass given left main disease. Will advance medications as tolerates. Wound site appears stable. For transfer to [address] [place] [address] with telemetry.
[2020-01-01] MEDS ORDERED: Metoprolol Succinate XL TAB* 50 MG PO SCH (09:00)
[2020-01-01] MEDS: Lisinopril TAB* 5 MG PO SCH (09:15)
[2020-01-01] MEDS: Aspirin 81 mg CHEW TAB* 81 MG TAB.CHEW PO SCH (09:15)
[2020-01-01] MEDS: Ticagrelor* 90 MG TAB PO SCH ×2 (09:16→20:18)
[2020-01-01 11:12] LABS: Troponin I 15.07 ng/mL (<0.03)
[2020-01-01 11:18] LABS: ABS Basophils 0.1 10^3/ul (0-0.2); ABS Eosinophils 0.3 10^3/ul (0-0.6); ABS Lymphocytes 1.7 10^3/ul (1.0-4.8); ABS Monocytes 0.6 10^3/ul (0-0.8); ABS Neutrophils 5.3 10^3/ul (1.5-7.7); Eosinophil % 3.4 %; Hematocrit 39 % (35-47); Hemoglobin 13.3 g/dL (12.0-16.0); Lymphocyte % 21.7 %; Mean Corpuscular HGB Conc 34 g/dL (31-36); Mean Corpuscular Hemoglobin 35 pg (27-31); Mean Corpuscular Volume 102 fL (80-97); Mean Platelet Volume 8.8 fL (7.4-10.4); Platelet Count 240 10^3/uL (150-450); Red Blood Count 3.79 10^6 /uL (3.70-4.87); Red Cell Distribution Width 13 % (10-15)
--- NOTE | 2020-01-01 12:51 | ECHO ---
*[facility]* [place] [address] Fax #: [phone] Transthoracic Echocardiogram Patient: Becki Ayala : 1965 Study Date: 01/01/2020 Age: 54 Gender: F HR: 54 bpm Height: 62 in /157.5 cm BSA: 1.69 m^2 Weight: 149.7 lb /68 kg BMI: 27.4 kg/m^2 *Senior Design Engineer: * Genevieve Carvalho RDCS RN *Referring Physician: * Roger Loco MD *Reading Physician: * Brennan Rowe MD Indications: Myocardial Infarction. S/P PCI. History: Coronary artery disease with prior MIs and coronary stents placed. Risk factors: Current tobacco use. Dyslipidemia. Conclusions Summary: - Left ventricle: The cavity size is normal. Wall thickness is mildly increased. - Regional wall motion abnormality: Hypokinesis of the basal inferoseptal, basal-mid inferior, and mid inferolateral myocardium. - Right ventricle: The cavity size is normal. Systolic function is normal. - Left atrium: The atrium is mildly dilated. - No significant valvular abnormlaties noted. Recommendations: None prior for comparison at time of interpretation. Study data: Transthoracic echocardiogram. Procedure: Transthoracic echocardiography was performed. Image quality was fair. The study was technically limited due to smoking history. Intravenous Definity 3.5 ml was administered to enhance imaging. Complete 2D, spectral Doppler, and color flow Doppler. Location: ICU Patient status: Inpatient. Patient room number: ICU 1. Rhythm: Bradycardia. Findings Left ventricle: The cavity size is normal. Wall thickness is mildly increased. Systolic function is mildly reduced. The estimated ejection fraction is 45-50%. Regional wall motion abnormalities: Hypokinesis of the basal inferoseptal, basal-mid inferior, and mid inferolateral myocardium. Doppler parameters are consistent with abnormal left ventricular relaxation (grade 1 diastolic dysfunction). Right ventricle: The cavity size is normal. Systolic function is normal. Left atrium: The atrium is mildly dilated. Right atrium: The atrium is normal in size. Mitral valve: The leaflets are mildly thickened. There is no evidence of stenosis. There is trace regurgitation. Aortic valve: Not well visualized. The leaflets are normal thickness. There is no evidence of stenosis. There is no regurgitation. Tricuspid valve: Not well visualized. There is no evidence of stenosis. There is trace regurgitation. Pulmonic valve: Not well visualized. There is no evidence of stenosis. There is trace regurgitation. Aorta: Aortic root: The aortic root is not dilated. Ascending aorta: The ascending aorta is not dilated. Aortic arch: The aortic arch is not dilated. Pericardium: A prominent pericardial fat pad is present. There is no significant pericardial effusion. Pulmonary arteries: Not well visualized. Systolic pressure can not be accurately estimated. Systemic veins: Inferior vena cava: The vessel is mildly dilated. There is (< 50%) respiratory change in the IVC dimension. Measurements Left ventricle Value Ref Aortic valve Value Ref YUNI, LAX 5.1 cm 3.8 - 5.2 Vivian diam, ED 2.2 cm ---- ESD, LAX (H) 4.0 cm 2.2 - 3.5 Peak v, S 1.1 m/sec ---- FS, LAX (L) 23 % 27 - 45 VTI, S 23.2 cm ---- PW, ED (H) 1.2 cm 0.6 - 0.9 Mean grad, S 3.0 mm Hg ---- IVS/PW, ED 0.98 Peak grad, S 5.0 mm Hg ---- E', lat vivian, TDI (L) 5.2 cm/sec >=10.0 LVOT/AV, VTI ratio 0.75 -- -- E/e', lat vivian, 9 TDI Mitral valve Value Ref E', med vivian, TDI (L) 5.9 cm/sec >=7.0 Peak E 0.48 m/sec -- -- E/e', med vivian, 8 Peak A 0.73 m/sec ---- TDI Decel time 292 ms ---- E', avg, TDI 5.6 cm/sec Peak E/A ratio 0.7 ---- E/e', avg, TDI 9 <=14 Pulmonic valve Value Ref LVOT Value Ref Peak v, S 0.61 m/sec ---- Peak nicholas, S 0.9 m/sec Peak grad, S 1.0 mm Hg ---- VTI, S 17.3 cm Mean grad, S 2 mm Hg Aortic root Value Ref Root diam 2.6 cm <3.9 Ventricular septum Value Ref IVS, ED (H) 1.2 cm 0.6 - 0.9 Ascending aorta Value Ref AAo AP diam, S 3.1 cm ---- Right ventricle Value Ref YUNI, LAX 2.6 cm Aortic arch Value Ref YUNI minor ax, A4C 2.9 cm 1.9 - 3.5 Arch diam 2.6 cm ---- mid Decending aorta Value Ref Left atrium Value Ref Nancy peak nicholas 0.55 m/sec ---- AP dim, ES 3.60 cm 2.70 - 3.80 Inferior vena cava Value Ref ML dim, A4C 4.0 cm Diam 2.5 cm ---- SI dim, A4C 4.5 cm Vol/bsa, ES, 1-p 30 ml/m^2 11 - 40 A4C Vol/bsa, ES, A/L 33 ml/m^2 16 - 34 Right atrium Value Ref ML dim, ES, A4C 4.0 cm 2.6 - 4.4 SI dim, ES, A4C 4.5 cm 3.4 - 5.3 Estimated RAP 15 mm Hg Legend: (L) and (H) alethea values outside specified reference range. Prepared and electronically signed by Brennan Rowe MD 01/01/2020 10:48
[2020-01-01] MEDS ORDERED: Nicotine* 2MG (FRUIT FLAVOR) GUM PO PRN (16:45)
[2020-01-01] MEDS: Atorvastatin* 80 MG TAB PO SCH (17:06)
[2020-01-01] MEDS ORDERED: Metoprolol Tartrate TAB* 25 MG PO ONE (18:00)
[2020-01-01] MEDS ORDERED: Metoprolol Tartrate TAB* 25 MG PO SCH (21:00)
[2020-01-02 06:40] LABS: BUN/Creatinine Ratio 13.1 (8-20); Calcium 8.9 mg/dL (8.6-10.3); EGFR African American 123.2 (>60); EGFR Non-African American 101.8 (>60); Potassium 4.2 mmol/L (3.5-5.0)
[2020-01-02] MEDS: Aspirin 81 mg CHEW TAB* 81 MG TAB.CHEW PO SCH (09:52)
[2020-01-02] MEDS: Lisinopril TAB* 5 MG PO SCH (09:53)
[2020-01-02] MEDS: Metoprolol Succinate XL TAB* 50 MG PO SCH (09:53)
[2020-01-02] MEDS: Ticagrelor* 90 MG TAB PO SCH ×2 (09:53→21:08)
[2020-01-02] MEDS: Atorvastatin* 80 MG TAB PO SCH (17:39)
[2020-01-03 05:53] LABS: BUN/Creatinine Ratio 14.3 (8-20); Calcium 9.2 mg/dL (8.6-10.3); EGFR African American 118.7 (>60); EGFR Non-African American 98.1 (>60); Potassium 4.2 mmol/L (3.5-5.0)
[2020-01-03] MEDS: Lisinopril TAB* 5 MG PO SCH (07:57)
[2020-01-03] MEDS: Ticagrelor* 90 MG TAB PO SCH (07:57)
[2020-01-03] MEDS: Aspirin 81 mg CHEW TAB* 81 MG TAB.CHEW PO SCH (07:57)
[2020-01-03] MEDS: Metoprolol Succinate XL TAB* 50 MG PO SCH (07:57)
[2020-01-03 08:04] VITALS: BP 109/79
--- NOTE | 2020-01-03 12:04 | DS ---
CC: Dr. Handy Rodríguez, Senior Java Software Developer in [place] [facility]; Dr. Brennan Rowe, [facility]; [facility]; Hospitalist Service * DISCHARGE SUMMARY: DATE OF ADMISSION: 12/31/19 DATE OF DISCHARGE: 01/03/20 FINAL DIAGNOSIS: Acute ST-segment elevation inferior wall myocardial infarction. SECONDARY DIAGNOSES: 1. History of stenotic coronary artery disease. 2. Hyperlipidemia. 3. Hypertension. 4. Smoking abuse. DISCHARGE MEDICATIONS: Include: 1. Aspirin 81 mg a day. 2. Atorvastatin 80 mg once a day. 3. Metoprolol succinate 50 mg once a day. 4. Nitroglycerin p.r.n. 5. Ticagrelor 90 mg p.o. b.i.d. HISTORY OF PRESENT ILLNESS: The patient is a pleasant 54-year-old lady who presented to [facility] in the throws of an acute inferior wall myocardial infarction. Please refer to the H and P for complete details of her initial presentation. She was taken emergently to the cardiovascular laboratory and cardiac catheterization revealed the presence of a totally occluded mid right coronary artery. Of note, there was other disease present including a distal left main eccentric lesion that in its worse view appeared to be as much as 70% with calcium. The left anterior descending artery had moderate disease in its proximal to mid segment and a distal 65% to 70% lesion. The circumflex had a 70% to 75% narrowing seen in the superior branch of a bifurcating obtuse marginal branch and the inferior branch which was smaller in caliber had a 50% obstruction. The right coronary artery as mentioned had 100% obstruction in its mid portion but had a long 55% to 60% narrowing noted proximally. She underwent successful intervention into the area of total occlusion with placement of a 2.75 x 38 mm long Synergy drug- eluting stent, postdilated to 3.1 to 3.2 mm with no significant residual stenosis. Of note, the patient's prior cardiac history was significant in nature for the presence of multiple interventions in the past. In 1999, she underwent placement of a bare-metal stent in her proximal LAD. In May of 2012, she suffered an inferior wall myocardial infarction and had a stent placed in her proximal to mid portion of the right coronary artery. She also had disease in the circumflex and LAD for which electively in June of 2012 she underwent stenting to the proximal LAD and to the circumflex artery (of note, my history and physical mistakenly said to the right coronary artery, that is incorrect, it is the circumflex artery). She was followed up by Dr. Rodríguez up in [place] [facility] until 2013, as she stopped going to him because the distance was too great as she lives closer to the [facility]. She still did not seek any medical attention and eventually stopped all of her medications 2 years prior to this presentation except for the aspirin. During the course of the hospitalization, her cardiac enzymes revealed a peak CPK of 573 with a peak troponin of 27.4 for a peak MB of 94.4. (Of note, the CPK and MB were not taken at the time of the peak troponin, therefore they may have been higher). She underwent an echocardiogram which revealed the focal wall motion abnormality involving hypokinesis to the basal inferoseptal, basal mid, and mid inferolateral segment; but overall EF was estimated at 45% to 50%. She did well on medical management and was up and around and eventually discharged home on 01/03/20. PHYSICAL EXAMINATION: On the day of discharge, vital signs revealed blood pressure 109/79, pulse 52 and regular, respirations 18, O2 saturation 100% on room air. Neck was supple with no increased JVP. Chest was clear with no active rales, rhonchi, or wheezes. Heart revealed no visible heaves, no palpable heaves or thrills. Normal S1, S2. Bradycardic rate noted without significant murmur. Abdomen was soft and nontender. Extremities revealed a right radial artery site that was well healed. There was good antegrade flow. There was no hematoma or bruits present. Neuro: The patient is alert and oriented with normal mentation. Musculoskeletal: The patient with normal gait. Psychiatric: The patient with normal affect. EKG on the day of discharge revealed sinus bradycardia, heart rate 52. There were T-wave inversions in II, III, aVF and subtly in V5 and V6 but no Q-waves were noted. The patient is being discharged to home in stable condition. She has followup set up with Dr. Goins next week for a wound check in addition to Dr. Brennan Rowe who I personally introduced her to during this hospitalization who will take over management of her cardiac status. Consideration for bypass surgery in the next 3 to 6 months will be addressed through Dr. Rowe. She is currently on good dose of beta marisol, a low-dose amlodipine could be started as a second antianginal agent if needed but she has been up walking the halls without significant symptoms. She has not been smoking during the hospital and we had given her nicotine gum and I have urged her to continue not smoking and I have personally urged her also to refrain from smoking and hopefully they will actively pursue this. Of note, the patient personally had asked us to try to set up physicians closer to where she lives which is the reason at this point in time why she will be seeing Dr. Rowe, videotape recording engineer and will be set up through the hospital for a primary care physician in the area. [id number]/CPS #: [id number] MTDD
[2020-01-04] MEDS ORDERED: Lisinopril TAB* 5 MG PO SCH (09:00)
== END 2020-01-03 11:00 | disposition home or self-care (01) | DRG 174 ==
LOC: ED 12:27 → CHICATH 12:45 → ICU 14:03 → MEDTELE 01-01 10:32
PROVIDERS: ADMIT Internal Medicine Cardiovascular Disease; ATTEND Internal Medicine Cardiovascular Disease
PROC: 4A023N7 Measurement of Cardiac Sampling and Pressure, Left Heart, Percutaneous Approach (ICD-10-PCS; 2019-12-31)
PROC: B2111ZZ Fluoroscopy of Multiple Coronary Arteries using Low Osmolar Contrast (ICD-10-PCS; 2019-12-31)
PROC: B2151ZZ Fluoroscopy of Left Heart using Low Osmolar Contrast (ICD-10-PCS; 2019-12-31)
PROC: 027034Z Dilation of Coronary Artery, One Artery with Drug-eluting Intraluminal Device, Percutaneous Approach (ICD-10-PCS; principal; 2019-12-31 12:45)
DX: I21.19 ST elevation (STEMI) myocardial infarction involving other coronary artery of inferior wall (principal); I25.10 Atherosclerotic heart disease of native coronary artery without angina pectoris; E78.5 Hyperlipidemia, unspecified; I25.82 Chronic total occlusion of coronary artery; R00.1 Bradycardia, unspecified; I10 Essential (primary) hypertension; F17.210 Nicotine dependence, cigarettes, uncomplicated; Z79.82 Long term (current) use of aspirin; Z79.899 Other long term (current) drug therapy; Z79.02 Long term (current) use of antithrombotics/antiplatelets; Z95.5 Presence of coronary angioplasty implant and graft; I25.2 Old myocardial infarction; Z28.21 Immunization not carried out because of patient refusal
CPT/HCPCS: 36415; 76937; 80048; 80053; 80061; 82550; 82553; 83036; 83721; 83880; 84484; 85025; 85347; 85610; 87641; 93005; 93306; 99156; 99157; 99285; A9270-GY; C1725; C1769; C1876; C1887; C8929; C9606-RC; J1644